=== PATIENT | male | born 1985 | race Caucasian/White ===

== ENCOUNTER 2021-03-20 18:06 | Emergency (ER) | payer MEDICAID ==
[~2021-03-20] VITALS: Ht 172.7 cm; Wt 77.3 kg
[2021-03-20] MEDS ORDERED: DiphenhydrAMINE HCL 50 MG/ML VIAL IVP STA (18:09)
[2021-03-20] MEDS ORDERED: DiphenhydrAMINE HCL 50 MG/ML VIAL ONE (18:11)
[2021-03-20] MEDS ORDERED: MethylPREDNISolone SOD SUCC 125 MG/2 ML VIAL ONE (18:11)
[2021-03-20] MEDS ORDERED: SODIUM CHLORIDE 0.9% 1,000 ML IV ONE (18:15)
[2021-03-20] MEDS ORDERED: MethylPREDNISolone SOD SUCC 125 MG/2 ML VIAL IVP ONE (18:15)
[2021-03-20] MEDS ORDERED: FAMOTIDINE 10 MG/ML 2 ML VIAL IVP ONE (18:15)
[2021-03-20 19:51] VITALS: BP 132/75
== END 2021-03-20 19:55 | disposition home or self-care (01) ==
LOC: EMS 18:09
DX: T63.441A Toxic effect of venom of bees, accidental (unintentional), initial encounter (principal); Y92.89 Other specified places as the place of occurrence of the external cause
CPT/HCPCS: 96361; 96374; 96375; 99284; J1200; J2930; J3490